=== PATIENT | male | born 1960 | race Two or more races ===

== ENCOUNTER 2025-04-09 08:57 | Emergency (ER) | payer OTHER ==
[~2025-04-09] VITALS: Ht 177.8 cm; Wt 80.7 kg
[~2025-04-09 08:57] MED LIST: LISINOPRIL40 MG; LOPID 600MG; ZOCOR40 MG
[2025-04-09] MEDS ORDERED: METFORMIN HCL1000 MG (09:14)
[2025-04-09 10:20] LABS: BASO % 0.3 % (0.1-1.2); EOS # 0.14 (0.04-0.54); EOS % 2.0 % (0.7-7.0); LYMPH # 2.02 (1.18-3.74); LYMPH % 29.0 % (19.3-53.1); MEAN PLATELET VOLUME 11.60 fl (9.4-12.4); MONO # 0.32 (0.24-0.82); MONO % 4.6 % (4.7-12.5); NEUT # 4.45 (1.56-6.13); NEUT % 64.0 % (34.0-71.1); RED CELL DISTRIBUTION WIDTH 13.3 % (11.6-14.4)
[2025-04-09] MEDS ORDERED: 8 HOUR650 MG PO (12:11)
[2025-04-09] MEDS ORDERED: ZYRTEC10 M3 PO (12:11)
== END 2025-04-09 12:35 | disposition home or self-care (01) ==
LOC: ER 08:57
PROVIDERS: Preventive Medicine Public Health & General Preventive Medicine
DX: M54.89 Other dorsalgia (principal); R53.81 Other malaise; E11.9 Type 2 diabetes mellitus without complications; Z79.84 Long term (current) use of oral hypoglycemic drugs; I10 Essential (primary) hypertension